=== PATIENT | female | born 1980 | race African-American/Black ===

== ENCOUNTER 2017-03-02 09:24 | Observation (INO) ==
[2017-03-02] MEDS ORDERED: DEXTROSE 5% LACTATED RINGERS 500 ML IV ONE (09:33)
[2017-03-02 09:54] LABS: Basophils % 0.2 % (0.0-0.8); Hematocrit 36.7 VOL% (35.7-47.0); Hemoglobin 12.1 GM/DL (12.0-16.0); Immature Granulocytes % 0.3 %; Immature Granulocytes Absolute 0.04 #; Lymphocytes # 1.4 10*3/uL (1.4-4.0); Lymphocytes % 10.1 % (21.3-54.2); Mean Corpuscular Hemoglobin 28 PG (27-34); Mean Corpuscular Volume 83.4 FL (87-102); Mean Platelet Volume 9.1 FL (9.6-12.0); Monocytes # 1.1 10*3/uL (0.11-0.8); Monocytes % 7.7 % (1.7-12.7); Neutrophils # 11.3 10*3/uL (1.4-7.4); Neutrophils % 81.7 % (38.7-73.9); Platelet Count 339 T/CUMM (130-400); Red Cell Distribution Width 13.6 % (9.3-17.3); White Blood Count 13.9 T/CUMM (4-12)
[2017-03-02 10:32] LABS: Alanine Aminotransferase 16 U/L (13-56); Albumin 3.9 G/DL (3.4-5.0); Alkaline Phosphatase 71 U/L (45-117); Aspartate Amino Transferase 10 U/L (0-37); Beta HCG Titer < 1.0 mIU/ml (1-3); Bilirubin,Total < 0.39 MG/DL (0.2-1.0); Blood Urea Nitrogen 7 MG/DL (7-18); Calcium 8.8 MG/DL (8.5-10.1); Glucose 111 MG/DL (74-106); Potassium 3.9 MMOL/L (3.5-5.1); Sodium 143 MMOL/L (136-145); Total Protein 7.6 G/DL (6.4-8.3)
[2017-03-02] MEDS: FAMOTIDINE 20 MG/2 ML VIAL IV SCH ×2 (11:28→23:05)
[2017-03-02] MEDS: ONDANSETRON 4 MG/2 ML VIAL IV PRN ×2 (11:29→17:00)
[2017-03-02] MEDS: MORPHINE 2 MG/1 ML SYRINGE IV PRN ×2 (11:29→17:00)
[2017-03-02 12:34] LABS: Apearance,Urine CLEAR (Clear); Bilirubin,Urine Negative (Negative); Blood, Urine Small mg/dL (Negative); Glucose,Urine (UA) Negative (Negative); Ketones,Urine 5 mg/dL (Negative); Mucus,Urine Occasional /LPF (Occasional); Nitrite,Urine Negative (Negative); Protein,Urine Negative; RBC,Urine 6 /HPF (0-4); Squamous Epithelial Cell,Urine Occasional /HPF (0-10); Urine Color Yellow (Yellow); Urine Specific Gravity 1.023 (1.001-1.035); Urine Urobilinogen < 2.0 EU/DL (0.2-1.0); WBC,Urine <1 /HPF (0-6)
[2017-03-02] MEDS: DOXYCYCLINE HYCLATE INJ 100 MG in SODIUM CHLORIDE 0.9% 100 ML IV SCH (13:03)
--- NOTE | 2017-03-02 14:17 | CT Report ---
Exam: CT pelvis wo/w con Date: 03/02/2017 1:15 PM Comparison: Pelvic sonogram 03/02/2017 Indication: Pelvic pain ovarian mass Total DLP: 905.7 mGy*cm Technical: Axial sagittal and coronal images obtained without and with 100 cc intravenous contrast Omnipaque through the pelvis. Dose reduction was performed with decreasing kv and mA and automated exposure Findings: The examination reveals a large septated mass present in the right adnexa. Some component of free fluid is also present posteriorly. The mass in the right measures at least 9 cm x 5.5 cm. The left adnexa also has septated cystic areas present this area measures approximately 4.4 x 2.6 cm. The uterus is midline. The bladder is otherwise unremarkable. The appendix appears to be slightly distended however no obvious fluid immediately adjacent to this area. Small calcification in the left adnexa is also present. Some dilatation of the transverse colon present. Contrast is present in the bladder. The exam reveals facet arthropathy lumbosacral spine. Impression: 1. Mass density in the right and left adnexa with septations and free fluid present. These findings are suspicious for ovarian carcinoma. Endometrioma with endometriosis are also considered. Dermoid tumors/teratoma are also considered. After discussion with Dr. Bueno. The possibility of the tubo-ovarian abscess would also be considered in the differential as the patient is running fever. 2. Slightly distended appendix however no secondary signs of inflammation around the appendix are otherwise noted. This measures up to 5.4 mm Critical test findings discussed with Dr. Bueno. PROCEDURE INTERPRETED AT [facility] DEPARTMENT OF RADIOLOGY Final Report Signed by: Dr. Alexandre Sanchez
[2017-03-02] MEDS: LACTATED RINGERS 1,000 ML IV SCH ×2 (14:50→23:31)
--- NOTE | 2017-03-02 16:42 | XRay Report ---
XR chest 2V Date: 03/02/2017 4:03 PM History: Fever Comparison: None Technique: PA and lateral chest Findings: The heart is normal in size. The lungs are clear with unremarkable mediastinum. Minimal dextroscoliosis of the thoracic spine. Impression: No acute cardiopulmonary pathology identified. PROCEDURE INTERPRETED AT [facility] DEPARTMENT OF RADIOLOGY Final Report Signed by: Dr. Debbie Martinez
--- NOTE | 2017-03-02 18:33 | Event Note ---
Spoke to pt regarding CT scan results and CXR results. I have recommended a [facility]O /BSO and maybe even transfer to [place] if needed. The pt expressed she would like to stay here in [place] if possible. I will have general surgery evaluate the CT Scan and the pt tomorrow. The pt could use 24-48 hours of antibiotics . The pt is hungry and stable at this time. I will feed her a light diet and then make her NPO and we will recheck a CBC in the morning and re -evaluate the pt.
[2017-03-03] MEDS: DOXYCYCLINE HYCLATE INJ 100 MG in SODIUM CHLORIDE 0.9% 100 ML IV SCH ×2 (01:18→12:33)
[2017-03-03 06:18] LABS: Basophils % 0.3 % (0.0-0.8); Eosinophils # 0.1 10*3/uL (0.0-0.87); Eosinophils % 0.6 % (0.00-10.9); Hematocrit 32.2 VOL% (35.7-47.0); Hemoglobin 10.2 GM/DL (12.0-16.0); Immature Granulocytes % 0.3 %; Immature Granulocytes Absolute 0.03 #; Lymphocytes # 2.5 10*3/uL (1.4-4.0); Lymphocytes % 27.8 % (21.3-54.2); Mean Corpuscular HGB Conc 31.7 GM/DL (32-36); Mean Corpuscular Hemoglobin 27 PG (27-34); Mean Corpuscular Volume 84.1 FL (87-102); Mean Platelet Volume 9.3 FL (9.6-12.0); Monocytes % 11.1 % (1.7-12.7); Neutrophils # 5.4 10*3/uL (1.4-7.4); Neutrophils % 59.9 % (38.7-73.9); Platelet Count 295 T/CUMM (130-400); Red Blood Count 3.83 MC/CUMM (3.8-5.5); Red Cell Distribution Width 13.8 % (9.3-17.3); White Blood Count 8.9 T/CUMM (4-12)
[2017-03-03] MEDS ORDERED: ACETAMINOPHEN 500 MG TABLET PO ONE (08:59)
--- NOTE | 2017-03-03 10:19 | OB/GYN Progress Note ---
Assessment and Plan (1) Ovarian cyst Status: Acute Assessment and plan: unknown etiology but pt is feeling better and her fever and WBC count have normalized today. I spoke with group marketing vp solar sales consultant at [facility] today and reviewed the case . It was recommended to proceed with surgery consult and verify that the pt does not have an acute abdomen and continue watching pt. For now we will watch and continue IV antibiotics. 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 Her pain is a 4/10 in intensity. Per notes and history her last dose of Morphine was last night a 5 pm. The pt has a headache now. She has been voiding and walking to the bathroom and says the pain is worse when she moves and gets to a 5/10 in intensity. She denies nausea/vomiting. 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 - Constitutional Vitals: Vital Signs Temp Pulse Resp BP Pulse Ox 03/03/17 07:26 98 F 95 H 18 134/82 100 03/03/17 05:53 17 03/03/17 03:59 97.6 F 87 17 122/78 98 03/03/17 02:00 18 03/02/17 23:33 98.6 F 90 18 132/78 97 03/02/17 19:46 98.9 F 91 H 19 129/78 98 03/02/17 15:39 100 F H 98 H 18 145/84 98 03/02/17 14:00 98.7 F 99 H 20 145/90 98 03/02/17 11:45 100.5 F H 99 H 18 141/90 100 General appearance: normal weight, no acute distress - Respiratory Respiratory exam: Absent: accessory muscle use - Cardiovascular Cardiovascular exam: Present: regular rate and rhythm - GI/Abdominal GI/Abdominal exam: Present: tenderness, soft. Absent: ascites, distended, guarding, rebound - Extremities Exam Extremities exam: Absent: calf tenderness - Neurological Exam Neurological exam: Present: alert, oriented X3 - Psychiatric Psychiatric exam: Present: flat affect. Absent: agitated, anxious - Skin Skin exam: Present: normal color, warm Results - Labs CBC & BMP: 03/03/17 05:45 03/02/17 09:45 - Diagnostic Findings Procedure: Chest x-ray: report reviewed by me, Ultrasound Pelvic: report reviewed by me, CT: report reviewed by me
[2017-03-03] MEDS: FAMOTIDINE 20 MG/2 ML VIAL IV SCH (10:49)
[2017-03-03] MEDS: LACTATED RINGERS 1,000 ML IV SCH ×2 (10:50→21:10)
--- NOTE | 2017-03-03 13:54 | General Surgery Consult Note ---
Assessment and Plan - Time spent with patient Time spent with patient: Greater than 30 minutes (1) Ovarian cyst Status: Acute Assessment and plan: I was asked to evaluate to see whether I felt she had an acute surgical abdomen. She has no peritoneal findings and actually minimal abdominal pain at this point. She reports being much less abdominal pain since her admission and she now feels well. She has a normal white blood cell count. This was mildly elevated on admission. I did review her CT scan and discussed the findings and her case with Dr. Bueno. I agree with plans of referral to us gynecologic oncology. Her tumor markers are pending. I do not see an indication at this point for acute surgical intervention. I would favor this being a gynecologic neoplasm and less likely a tubo-ovarian abscess. Current Visit: Yes History of Present Illness Chief complaint: Abdominal pain History of present illness: Ms. Cherry is a 36 year old female Who presented with several days of lower abdominal pain which was a and mild to moderate in severity. She did not know of aggravating or alleviating factors. She had a CT scan of her abdomen which shows a complex right adnexal mass worrisome for potential malignancy. She had abdominal pain when she was admitted this is actually nearly completely gone away since her admission. She is currently pain-free. Home Medications Medication Instructions Recorded Confirmed Type No Known Home Medications [No 07/16/16 07/24/16 History Known Home Medications] Allergies Allergy/AdvReac Type Severity Reaction Status Date / Time ibuprofen Allergy Verified 07/24/16 07:21 Medical,Surgical,& Family Hx - Medical History Cardio: History of: Hypertension (? NEVER DIAGNOSED) Neurology: History of: Migraine (RARELY DURING MENSTRUAL PERIODS) No history of: Seizures HEENT: History of: Eye Problem (CONTACTS) Reproductive: History of: Reproductive Problems (DUB, PELVIC PAIN, POSSIBLE ENDOCERVICAL POLYP.) Other: History of: Anesthesia Reactions (NAUSEA AFTER ABLATION 2012) - Surgical History HEENT Surgeries: Surgical HX of: Eye Surgery (RETINAL DETACHMENT SURGERY- SUCCESSFUL) Reproductive Surgeries: Surgical HX of;: Section (X2), Dilation and Curettage, Gynecologic Surgery (NOV2012), Tubal Ligation - Family History Family History: noncontributory - Social History Smoking Status: Never smoker Frequency of Alcohol Use: Occasionally Type of Drug Use: None - Constitutional Constitutional: Absent: chills, fever(s) - Cardiovascular Cardiovascular: Absent: chest pain at rest, chest pain with activity, dyspnea, dyspnea on exertion - Respiratory Respiratory: Absent: dyspnea, hemoptysis - Gastrointestinal Gastrointestinal: Present: abdominal pain, nausea. Absent: cramping, hematemesis, hematochezia, jaundice - Genitourinary Genitourinary: Absent: hematuria - Musculoskeletal Musculoskeletal: Absent: back pain - Endocrine Endocrine: Absent: polyuria Hematologic/Lymphatic: Absent: easy bruising Exam - Constitutional Vitals: Period Temp Pulse Resp BP Sys/Wall Pulse Ox Last 24 Hr 97.6 F-100 F 85-99 17-20 122-145/78-90 97-100 General appearance: no acute distress - Head Head exam: Present: normocephalic - Eye Eye exam: Absent: scleral icterus - ENT Mouth exam: Present: normal voice - Neck Neck exam: Present: trachea midline - Respiratory Respiratory exam: Present: clear to auscultation bilaterally. Absent: accessory muscle use - Cardiovascular Cardiovascular exam: Present: RRR - GI/Abdominal GI/Abdominal exam: Present: soft. Absent: distended, guarding, mass, tenderness , rebound - Extremities Exam Extremities exam: Absent: edema - Neurological Exam Neurological exam: Present: alert, oriented X3. Absent: motor sensory deficit Speech: Present: normal - Skin Skin exam: Present: normal color Results - Labs CBC & BMP: 03/03/17 05:45 03/02/17 09:45 Lab Results: I have reviewed the past 24 hour labs - Diagnostic Findings Procedure: CT Abdomen and Pelvis: image reviewed by me, report reviewed by me
[2017-03-03] MEDS ORDERED: ACETAMINOPHEN 500 MG TABLET PO PRN (16:45)
[2017-03-04] MEDS: FAMOTIDINE 20 MG/2 ML VIAL IV SCH ×2 (00:10→10:36)
[2017-03-04] MEDS: DOXYCYCLINE HYCLATE INJ 100 MG in SODIUM CHLORIDE 0.9% 100 ML IV SCH (01:59)
[2017-03-04] MEDS: LACTATED RINGERS 1,000 ML IV SCH (07:13)
[2017-03-04 07:24] VITALS: BP 141/92
--- NOTE | 2017-03-04 09:38 | Discharge Summary ---
Hospital Course - Hospital Course Hospital Course: This is a 36-year-old who was admitted to the hospital with acute onset of pelvic pain and upon her workup was noted to have bilateral large ovarian cyst. She was admitted for pain control and further evaluation. She was treated with antibiotics and within 24 hours she was feeling better. A surgical consult was obtained in order to help evaluate whether the patient needed surgery in this hospital stay but due to her not having an acute abdomen and responding to antibiotics it was opted not to operate at this time. The patient was discharged home on antibiotics with strict precautions. The CA 125 lab work was still pending on the time of the patient was discharged. The patient was also given my cell number in case she had any issues. Diagnosis - Discharge Diagnosis (1) Ovarian cyst Status: Acute Specialty Discharge - Follow Up or Referrals Follow up with: Alexa Mcfarland MD [Physician] - Discharge Plan - Discharge Data Disposition: Disch To Home/Self Care Condition at Discharge: Stable Discharge Diet: advance to your usual diet Activity: no lifting Hygiene: no restrictions Weight Bearing at Discharge: full weight bearing Contact your physician if you experience:: fever over 101, Difficulty voiding, Redness or swelling, Nausea/Vomiting, Shortness of breath, Bleeding, pain uncontrolled by pain medications - Discharge Medications No Action No Known Home Medications [No Known Home Medications] - Follow Up or Referral Follow Up: Alexa Mcfarland MD [Physician] - - Forms/Instructions Instructions: Alberto Antibiotic Awarness, Ovarian Cyst (DC), Pelvic Pain in Women (DC) Exam - Constitutional Vitals: Period Temp Pulse Resp BP Sys/Wall Pulse Ox Last 24 Hr 97.6 F-98.9 F 72-89 18-20 129-141/74-92 97-99 General appearance: normal weight, no acute distress - Respiratory Respiratory exam: Absent: accessory muscle use - Cardiovascular Cardiovascular exam: Present: regular rate and rhythm - GI/Abdominal GI/Abdominal exam: Present: normal bowel sounds. Absent: distended, guarding, tenderness, rebound - Extremities Exam Extremities exam: Absent: calf tenderness - Neurological Exam Neurological exam: Present: alert, oriented X3 - Psychiatric Psychiatric exam: Present: normal affect Discharge Results Procedures and tests throughout hospitalization: Pending Orders 03/02/17 Cancer Antigen 125 Stat 03/02/17 12:20 Urine Culture Stat Labs on day of discharge: Preliminary micro results at discharge 03/02/17 12:20 Urine Culture - Preliminary Urine,Ureter No Growth at 24 hours. DS: Provider Date of admission: 03/02/17 09:33 Primary care physician: . No PCP Attending physician on admission: Alexa Irene- Consults: 03/03/17 13:26 Consult to Physician [CONS] Routine Comment: surgical consult Consulting Provider: Navi Anderson III. Consulting Provider Notified: Yes Discharging clinician: Alexa Irene-
== END 2017-03-04 14:00 | disposition home or self-care (01) ==
LOC: N.OB
PROVIDERS: ADMIT Obstetrics & Gynecology; ATTEND Obstetrics & Gynecology